=== PATIENT | female | born 1990 | race Caucasian/White ===

== ENCOUNTER → 2019-01-20 | Outpatient (CLI) | payer BC | LOC: COL.RAD 13:31 | DX: M19.012 Primary osteoarthritis, left shoulder (principal) | CPT/HCPCS: A9585; Q9967 ==

== ENCOUNTER → 2021-08-26 | Outpatient (CLI) | payer BC | LOC: COL.RAD 10:22 | DX: M25.512 Pain in left shoulder (principal); S43.402A Unspecified sprain of left shoulder joint, initial encounter | CPT/HCPCS: Q9967 ==

== ENCOUNTER 2022-09-17 09:15 | Outpatient (CLI) | payer BC ==
[~2022-09-17] VITALS: Ht 167.6 cm; Wt 73.3 kg
[~2022-09-17 09:15] MED LIST: JOLESSA 30 MCG-1 TAB PO
[2022-09-17 09:35] LABS: BASO % 0.7 % (0.0-2.0); EOS # 0.3 K/mm3 (0.0-0.7); EOS % 5.4 % (0.0-4.0); GRAN # 3.3 K/mm3 (1.4-6.5); GRAN % 57.4 % (42.2-75.2); HEMOGLOBIN 11.6 g/dl (12.5-16.0); LYMPH # 1.6 K/mm3 (1.2-3.4); LYMPH % 28.1 % (20.0-51.0); MEAN CELL VOLUME 74 fl (80.0-100.0); MEAN CORPUSCULAR HEMOGLOBIN 24 pg (27-31); MEAN CORPUSCULAR HGB CONC 32 g/dl (33.0-37.0); MEAN PLATELET VOLUME 9.4 fl (7.4-10.4); MONO # 0.5 K/mm3 (0.1-0.6); MONO % 8.2 % (1.7-9.3); PLATELET COUNT 297 K/mm3 (130-400); RED BLOOD COUNT 4.88 M/mm3 (4.10-5.30); REDCELL DISTRIBUTION WIDTH-CV 15.7 % (11.5-14.5)
[2022-09-17 09:36] LABS: HEMATOCRIT 35.9 % (37.0-47.0)
[2022-09-17 10:00] LABS: ALBUMIN 3.9 gm/dL (3.5-5.0); BILIRUBIN,TOTAL 0.3 mg/dL (0.2-1.2); CALCIUM 9.3 mg/dL (8.4-10.2); CREATININE, serum 0.9 mg/dL (0.57-1.11); POTASSIUM 3.9 mmol/L (3.5-4.5)
[2022-09-17 10:12] VITALS: BP 114/74; PULSE 82; TEMP 98
[2022-09-17 10:20] VITALS: BP 107/66; PULSE 77
== END 2022-09-17 12:29 | disposition home or self-care (01) ==
LOC: EUO 09:15
PROVIDERS: Internal Medicine Gastroenterology
DX: K51.811 Other ulcerative colitis with rectal bleeding (principal)
CPT/HCPCS: J1200; J2930; J3380; J7050

== ENCOUNTER 2022-11-12 13:59 | Outpatient (CLI) | payer BC ==
[~2022-11-12] VITALS: Ht 167.6 cm; Wt 73.3 kg
[2022-11-12 14:28] LABS: BASO # 0.1 K/mm3 (0.0-0.2); BASO % 0.8 % (0.0-2.0); EOS # 0.4 K/mm3 (0.0-0.7); EOS % 5.3 % (0.0-4.0); GRAN # 4.3 K/mm3 (1.4-6.5); GRAN % 57.6 % (42.2-75.2); HEMOGLOBIN 12.1 g/dl (12.5-16.0); LYMPH # 2.3 K/mm3 (1.2-3.4); LYMPH % 29.8 % (20.0-51.0); MEAN CELL VOLUME 78 fl (80.0-100.0); MEAN CORPUSCULAR HEMOGLOBIN 26 pg (27-31); MEAN CORPUSCULAR HGB CONC 33 g/dl (33.0-37.0); MEAN PLATELET VOLUME 9.3 fl (7.4-10.4); MONO # 0.5 K/mm3 (0.1-0.6); MONO % 6.4 % (1.7-9.3); PLATELET COUNT 318 K/mm3 (130-400); RED BLOOD COUNT 4.69 M/mm3 (4.10-5.30)
[2022-11-12 14:30] LABS: HEMATOCRIT 36.5 % (37.0-47.0)
[2022-11-12 14:46] VITALS: BP 98/67; PULSE 83; TEMP 97.9
[2022-11-12 14:47] LABS: ALBUMIN 4.2 gm/dL (3.5-5.0); BILIRUBIN,TOTAL 0.4 mg/dL (0.2-1.2); CALCIUM 9.6 mg/dL (8.4-10.2); CREATININE, serum 0.88 mg/dL (0.57-1.11); POTASSIUM 3.9 mmol/L (3.5-4.5); TOTAL PROTEIN 7.3 gm/dL (6.2-8.1)
[2022-11-12] MEDS ORDERED: ENTYVIO (14:52)
--- NOTE | 2022-11-12 16:16 | NUR ---
PT WALKED TO [facility] FOR SCHEDULED ENTYVIO. IV STARTED, AND LABS DRAWN. ONCE LABS CAME BACK ENTYVIO ORDERS SENT TO PHARMACY. HX AND MEDS REVIEWED. ENTYVIO INFUSION RAN FOR 30 MINUTES. PT TOLERATED THE INFUSION. IV DC'D, PT EXITED THE EU.
== END 2022-11-12 15:47 | disposition home or self-care (01) ==
LOC: EUO 13:59
PROVIDERS: Internal Medicine Gastroenterology
DX: K51.20 Ulcerative (chronic) proctitis without complications (principal)
CPT/HCPCS: J1200; J2930; J3380; J7050

== ENCOUNTER 2023-03-13 13:52 | Outpatient (CLI) | payer BC ==
[~2023-03-13] VITALS: Ht 167.6 cm; Wt 74.0 kg
[~2023-03-13 13:52] MED LIST changes: +ENTYVIO
[2023-03-13 14:18] LABS: BASO % 0.7 % (0.0-2.0); EOS # 0.3 K/mm3 (0.0-0.7); GRAN # 3.5 K/mm3 (1.4-6.5); GRAN % 60.2 % (42.2-75.2); HEMOGLOBIN 12.2 g/dl (12.5-16.0); LYMPH # 1.6 K/mm3 (1.2-3.4); MEAN CELL VOLUME 82 fl (80.0-100.0); MEAN CORPUSCULAR HEMOGLOBIN 28 pg (27-31); MEAN CORPUSCULAR HGB CONC 34 g/dl (33.0-37.0); MEAN PLATELET VOLUME 9.6 fl (7.4-10.4); MONO # 0.3 K/mm3 (0.1-0.6); MONO % 5.8 % (1.7-9.3); PLATELET COUNT 304 K/mm3 (130-400); REDCELL DISTRIBUTION WIDTH-CV 14.4 % (11.5-14.5)
[2023-03-13 14:36] LABS: BILIRUBIN,TOTAL 0.4 mg/dL (0.2-1.2); CALCIUM 9.4 mg/dL (8.4-10.2); CREATININE, serum 0.89 mg/dL (0.57-1.11); POTASSIUM 3.8 mmol/L (3.5-4.5)
[2023-03-13 15:06] VITALS: BP 104/67; PULSE 68; TEMP 97.8
--- NOTE | 2023-03-13 16:11 | NUR ---
PT TOLERATED ENTYVIO INFUSION WELL. PT'S VS REMAINED WNL AND SHE AMBULATED INDEPENDENTLY FOLLOWING THE INFUSION. PT'S IV DISCONTINUED PRIOR TO DISCHARGE AND NEW APPOINTMENT WAS MADE.
== END 2023-03-13 16:17 | disposition home or self-care (01) ==
LOC: EUO 13:52
PROVIDERS: Internal Medicine Gastroenterology
DX: K51.20 Ulcerative (chronic) proctitis without complications (principal)
CPT/HCPCS: J1200; J2920; J3380; J7050

== ENCOUNTER 2023-07-27 12:54 | Outpatient (CLI) | payer BC ==
[~2023-07-27] VITALS: Ht 167.6 cm; Wt 76.2 kg
[2023-07-27 13:30] LABS: BASO # 0.1 K/mm3 (0.0-0.2); BASO % 0.7 % (0.0-2.0); EOS # 0.5 K/mm3 (0.0-0.7); EOS % 6.4 % (0.0-4.0); GRAN # 4.8 K/mm3 (1.4-6.5); GRAN % 65.2 % (42.2-75.2); HEMATOCRIT 37.8 % (37.0-47.0); LYMPH # 1.7 K/mm3 (1.2-3.4); LYMPH % 22.5 % (20.0-51.0); MEAN CELL VOLUME 85 fl (80.0-100.0); MEAN CORPUSCULAR HEMOGLOBIN 29 pg (27-31); MEAN CORPUSCULAR HGB CONC 34 g/dl (33.0-37.0); MEAN PLATELET VOLUME 9.9 fl (7.4-10.4); MONO # 0.4 K/mm3 (0.1-0.6); MONO % 4.9 % (1.7-9.3); PLATELET COUNT 286 K/mm3 (130-400); RED BLOOD COUNT 4.43 M/mm3 (4.10-5.30); REDCELL DISTRIBUTION WIDTH-CV 12.6 % (11.5-14.5)
[2023-07-27 13:51] VITALS: BP 106/64; PULSE 80; TEMP 98.8
[2023-07-27 13:56] LABS: ALBUMIN 3.9 gm/dL (3.5-5.0); BILIRUBIN,TOTAL 0.5 mg/dL (0.2-1.2); CALCIUM 9.2 mg/dL (8.4-10.2); CREATININE, serum 0.86 mg/dL (0.57-1.11); POTASSIUM 3.6 mmol/L (3.5-4.5); TOTAL PROTEIN 6.8 gm/dL (6.2-8.1)
[2023-07-27] MEDS ORDERED: methylPREDNISolone Sod Succ 40 MG/ML VIAL IV PRN (14:00)
[2023-07-27] MEDS ORDERED: Vedolizumab 300 MG in NS 250 ML IV ONE (14:00)
[2023-07-27] MEDS ORDERED: Acetaminophen 500 MG TAB PO PRN (14:00)
[2023-07-27] MEDS ORDERED: diphenhydrAMINE 50 MG/ML 1 ML VIAL IV PRN (14:00)
== END 2023-07-27 15:12 ==
LOC: EUO 12:54
PROVIDERS: Internal Medicine Gastroenterology
DX: K51.20 Ulcerative (chronic) proctitis without complications (principal)
CPT/HCPCS: J1200; J2920; J3380; J7050